=== PATIENT | female | born 1965 | race Two or more races ===

== ENCOUNTER 2024-12-24 10:11 | Outpatient (RCR) | payer BC, MEDICAID, SELFPAY ==
--- NOTE | 2024-12-24 10:41 | PTNOTE_ITS ---
PT OP Initial Eval Patient Information Outpatient Physical Therapy Treatment Date: 12/24/24 Visit Reasons: pain in RT shoulder Medical Diagnosis: M25.511 Treatment Dx #1: Right Shoulder Pain Treatment Dx #2: Right Shoulder Mobility Deficits Start of Care: 12/24/24 Date of Onset: 1 year ago Smoking Status Smoking Status: Never smoker Initial Assessment Subjective: Pt is a 59 y/o female reports of insidious onset right shoulder pain (10/07) ~ 1 year ago. Pt denied of trauma or injury. Pt's most recent xray negative no MRI has been done. Pt has limitation with reaching, overhead motions, chores, self care, cooking, cleaning, work duties, and recreational activities. Objective: Right Shoulder PROM: all motions are WFL with end range pain in all plane Right Shoulder AROM Flexion: 150 deg Abduction: 90 deg External Rotation: 80 deg Internal Rotation: 70 deg Right Shoulder MMTs: grossly 3+/5 Right Scapula MMTs: grossly 3/5 HBB AROM: thumb at T12 Assessment: Pt demonstrate right shoulder mobility deficits with pain leading to difficulty with ADLs. Pt will attempt physical therapy if pain persist Pt will be refer back to provider for further consultation. [employer] Goals 1) Increase right shoulder AROM WFL in 6 wks to be able to perform overhead motions 2) Increase right shoulder MMTs grossly to 4-/5 in 6 wks to be able to perform lifting activities 3) Decrease shoulder pain to 2/10 in 6 wks to be able to perform recreational activities 4) Increase scapula MMTs grossly to 3+/5 in 6 wks to be able to perform self care activities 5) Indep with HEP Treatment Plan 1) Manual Therapy 2) Therapeutic Activities 3) Therapeutic Exercises 4) Modalities (ice, heat) Frequency and Duration: 2 x wk for 6 wks Certification Dates: 12/24/24 to 03/25/25 Procedure Charges OP PT Eval Mod Complex 30 minutes: Yes
== END 2024-12-28 23:59 | disposition home or self-care (01) ==
LOC: CPTX 10:11
PROVIDERS: PCP Physician Assistant; Referring Provider Physician Assistant; Visit Provider Physician Assistant
DX: M25.511 Pain in right shoulder (principal)
CPT/HCPCS: 97162

== ENCOUNTER 2025-01-28 10:30 | Outpatient (RCR) | payer BC, MEDICAID, SELFPAY ==
--- NOTE | 2025-01-07 10:54 | PT.ODAYNRPT ---
PT Outpatient Daily Note OP Daily Note Outpatient Physical Therapy Treatment Date: 01/07/25 Visit Reasons: RIGHT SHOULDER PAIN Subjective: Pt's shoulder hurts the same. Pt still has stiffness and pain around the shoulder. Objective: Please see flow chart for list of ther ex performed Assessment: difficulty with OH ROM due to pain and instructed to work up to the pain. Post ice helped with pain and soreness Plan: Continue with PT Length of Time (minutes) of Treatment: 30 Minutes Procedure Charges Therapeutic Exercise 30 minutes: Yes
--- NOTE | 2025-01-21 11:50 | PT.ODAYNRPT ---
PT Outpatient Daily Note OP Daily Note Outpatient Physical Therapy Treatment Date: 01/21/25 Visit Reasons: RIGHT SHOULDER PAIN Subjective: Pt's left shoulder is hurting more. Pt's right shoulder feels about the same. Objective: Please see flow chart for list of ther ex performed Assessment: tolerate exercises with minimal pain Plan: Continue with PT Length of Time (minutes) of Treatment: 30 Minutes Procedure Charges Therapeutic Exercise 30 minutes: Yes
--- NOTE | 2025-01-28 11:48 | PT.ODAYNRPT ---
PT Outpatient Daily Note OP Daily Note Outpatient Physical Therapy Treatment Date: 01/28/25 Visit Reasons: RIGHT SHOULDER PAIN Subjective: Pt continues to have shoulder pain. Pt will also be seeing PCP for her left shoulder for further consultation. Objective: Please see flow chart for list of ther ex performed Assessment: tolerate exercises and demonstrate pain with all exercises. Post ice helped with soreness and pain Plan: Continue with PT Length of Time (minutes) of Treatment: 30 Minutes Procedure Charges Therapeutic Exercise 30 minutes: Yes
== END 2025-01-28 23:59 | disposition home or self-care (01) ==
LOC: CPTX 10:30
PROVIDERS: PCP Physician Assistant; Referring Provider Physician Assistant; Visit Provider Physician Assistant
DX: M25.511 Pain in right shoulder (principal)
CPT/HCPCS: 97110

== ENCOUNTER 2025-03-25 13:15 | Outpatient (RCR) | payer BC, MEDICAID, SELFPAY ==
--- NOTE | 2025-03-25 14:05 | PT.ODS1RPT ---
PT OP Progress/Discharge Note Date of Service: 03/25/25 Progress Note/DC Note Progress Note/Discharge Note: DC Note Patient Information Visit Reasons: RT shoulder pain Medical Diagnosis: M25.511 Treatment Dx #1: Right Shoulder Pain Treatment Dx #2: Right Shoulder Mobility Deficits Service Discharge Date: 03/25/25 Status Subjective: Pt's shoulder feels a little better, however, continues to have pain leading to difficulty with ADLs. Pt still has limitation with putting on clothes, overhead motions, reaching behind the back, and performing recreational activities. Objective: Right Shoulder PROM: all motions are WFL with end range pain in all plane Right Shoulder AROM Flexion: 155 deg Abduction: 100 deg External Rotation: 80 deg Internal Rotation: 70 deg Right Shoulder MMTs: grossly 3+/5 Right Scapula MMTs: grossly 3+/5 HBB AROM: thumb at T12 Assessment: Pt continues to shoulder pain leading to difficulty with ADLs, lifting, overhead motions, and recreational activities. At this time Pt will no longer benefit from physical therapy due to minimal progress towards goals. Recommend shoulder MRI to help determine nature of pain. Pt was instructed on HEP last session and educated to continue exercises to maintain overall mobility. Pt performed all exercises safely, thank you for your referrals. Plan: D/C home with HEP and follow up with MD [email or web address] Recommend shoulder MRI Procedure Charges Therapeutic Exercise 30 minutes: Yes
== END 2025-03-30 23:59 | disposition home or self-care (01) ==
LOC: CPTX 13:15
PROVIDERS: PCP Physician Assistant; Referring Provider Physician Assistant; Visit Provider Physician Assistant
DX: M25.511 Pain in right shoulder (principal)
CPT/HCPCS: 97110